=== PATIENT | female | born 1975 | race Caucasian/White ===

== ENCOUNTER 2017-09-14 14:35 | Outpatient (CLI) | payer MEDICARE | END 2017-09-14 14:36 | disposition home or self-care (01) | LOC: BICRAD 14:35 | PROVIDERS: ATTEND Specialist | DX: M25.531 Pain in right wrist (principal); M85.80 Other specified disorders of bone density and structure, unspecified site; Z98.1 Arthrodesis status ==

== ENCOUNTER 2018-07-21 01:25 | Outpatient (CLI) | payer MEDICARE ==
[2018-07-21 12:31] LABS: #Eosinphils 0.4 thou/uL (0.0-0.7); #Lymphocytes 1.2 thou/uL (1.20-3.40); #Monocytes 0.2 thou/uL (0.11-0.59); #Neutrophils 1.9 thou/uL (1.40-6.50); %Basophils 0.7 % (0.0-1.0); %Eosinophils 11.5 % (0.0-10.0); %Lymphocytes 32.1 % (21.0-51.0); %Monocytes 4.1 % (0.0-10.0); %Neutrophils 51.6 % (42.0-75.0); Hemoglobin 11.1 g/dL (12.0-16.0); Mean Corpuscular HGB CONC 33.4 g/dL (32.0-36.0); Mean Corpuscular Hemoglobin 26.7 pg (27.0-31.0); Mean Corpuscular Volume 79.8 fL (78.0-98.0); Mean Platelet Volume 8.2 fL (7.4-10.4); Platelet Count 162 thou/uL (130-400); RBC Distribution Width 14.4 % (11.5-14.5); Red Blood Cell (RBC) Count 4.17 mill/uL (4.20-5.40); White Blood Cell (WBC) Count 3.7 thou/uL (4.8-10.8)
[2018-07-21 12:41] LABS: Bilirubin Small (Negative); Blood, Urine Negative (Negative); Clarity CLOUDY (Clear); Glucose, Urine (Dipstick) Negative (Negative); Leukocyte Trace (Negative); Nitrite Negative (Negative); Protein, Urine (Dipstick) Negative (Neg-Trace); Specific Gravity, Urine 1.025 (1.002-1.036)
[2018-07-21 12:44] LABS: Bacteria/HPF Rare-Few HPF (None Seen); Hyaline Casts/LPF 0-3 HYALINE CAST LPF (0-3 Hyaline); WBC/HPF 0-3 HPF (0-3)
[2018-07-21 12:49] LABS: Anion Gap 13 mmol/L (10-20); BUN (Urea Nitrogen) 16 mg/dL (7.0-18.7); Calc. Creatinine Clearance 0 mL/min (70-130); Calcium 8.6 mg/dL (7.8-10.44); Carbon Dioxide 24 mmol/L (22-29); Chloride 105 mmol/L (98-107); Estimated GFR-MDRD 58; Glucose 79 mg/dL (70-105); Potassium 3.9 mmol/L (3.5-5.1); Sodium 138 mmol/L (136-145)
[2018-07-21 12:57] LABS: Crystals/HPF 1+ CA OXALATE HPF (Negative)
--- NOTE | 2018-07-21 14:45 | RAD ---
CHEST 2 VIEWS: COMPARISON: 09/13/2003. HISTORY: Preoperative exam. FINDINGS: Normal cardiac silhouette. The pulmonary vessels and hilum are normal. Costophrenic angles are kike r. No consolidation or mass. No pneumothorax or osseous abnormalities. IMPRESSION: No acute cardiopulmonary process. POS: BASIM
== END 2018-07-21 01:26 | disposition home or self-care (01) ==
LOC: LABBT 01:25
PROVIDERS: ATTEND Orthopaedic Surgery Hand Surgery
DX: Z01.818 Encounter for other preprocedural examination (principal); S63.112A Subluxation of metacarpophalangeal joint of left thumb, initial encounter
CPT/HCPCS: 71046; 80048; 81001; 85025; 85652; 93005; 93010; L3806-LT

== ENCOUNTER 2018-08-01 11:16 | Inpatient (IN) | payer MEDICARE ==
[2018-07-21 11:40] VITALS: BMI 24.4
[2018-08-01] MEDS ORDERED: Dexamethasone 20 MG/5 ML VIAL ONE (11:37)
[2018-08-01] MEDS ORDERED: PROPOFOL 200 MG/20 ML VIAL ONE (11:37)
[2018-08-01] MEDS ORDERED: Metoprolol Tartrate 5 MG/5 ML VIAL ONE (11:37)
[2018-08-01] MEDS ORDERED: Ketorolac Tromethamine 30 MG/ML VIAL ONE (11:37)
[2018-08-01] MEDS ORDERED: Ondansetron PF 4 MG/2 ML Vial ONE (11:37)
[2018-08-01] MEDS ORDERED: Lidocaine 1% PF 5 ML VIAL ONE (11:37)
[2018-08-01] MEDS ORDERED: Midazolam HCl 2 mg/2 ml Vial ONE (12:16)
[2018-08-01] MEDS ORDERED: Fentanyl 100 MCG/2 ML VIAL ONE ×4 (12:16→20:12)
[2018-08-01] MEDS ORDERED: Bacitracin Zinc Ointment 30 gm TUBE ONE (13:10)
[2018-08-01] MEDS ORDERED: Sodium Chloride 0.9% 10 ML ONE (13:10)
[2018-08-01] MEDS ORDERED: Bupivacaine PF 0.5% 30 ML VIAL ONE (13:14)
[2018-08-01] MEDS ORDERED: Betamet Acet/Betamet Na Ph 30 MG/5 ML VIAL ONE (13:14)
[2018-08-01] MEDS ORDERED: Thrombin 5000 UNITS/5 ML VIAL ONE ×2 (15:04→15:52)
[2018-08-01] MEDS ORDERED: PACU-Morphine 4MG/ML VIAL SLOW IVP PRN (20:07)
[2018-08-01] MEDS ORDERED: HYDROmorphone 2 MG/ML VIAL SLOW IVP PRN (20:07)
[2018-08-01] MEDS ORDERED: Promethazine HCl 25 MG/ML VIAL SLOW IVP PRN (20:07)
[2018-08-01] MEDS ORDERED: Promethazine HCl 25 MG/ML VIAL IM PRN (20:07)
[2018-08-01] MEDS ORDERED: Ondansetron HCl/PF 4 MG/2 ML Vial IVP PRN (20:07)
[2018-08-01] MEDS ORDERED: traMADol HCl 50 MG TAB PO PRN (20:14)
[2018-08-01] MEDS ORDERED: Ondansetron PF 4 MG/2 ML Vial IV PRN (20:14)
[2018-08-01] MEDS ORDERED: Fentanyl 100 MCG/2 ML VIAL SLOW IVP PRN (20:14)
[2018-08-01] MEDS ORDERED: Morphine 4 MG/ML VIAL SLOW IVP PRN (20:14)
[2018-08-01] MEDS ORDERED: Communication Order-Pharmacy FS SCH (20:15)
[2018-08-01] MEDS ORDERED: Meperidine HCl/PF 25 MG/ML VIAL IM PRN (20:16)
--- NOTE | 2018-08-01 20:35 | RAD ---
LEFT HAND THREE FLUOROSCOPIC VIEWS: History: Internal fixation procedure. Left hand arthroplasty. FINDINGS: Pins and wires securing the first MCP joint. POS: BASIM
[2018-08-01] MEDS: Aspirin 81 mg Enteric Coated Tablet PO SCH (21:56)
[2018-08-01] MEDS ORDERED: TETANUS AND DIPHTHERIA TOX/PF 0.5 ML DISP.SYRIN IM SCH (22:00)
[2018-08-01] MEDS: HYDROcodone/Acetaminophen 5/325 mg Tablet PO PRN (22:09)
[2018-08-01] MEDS: Ketorolac Tromethamine 30 MG/ML VIAL IVP SCH (23:38)
[2018-08-02] MEDS ORDERED: Vancomycin HCl 1 GM in Premix Bag 1 BAG IVPB SCH (02:00)
[2018-08-02] MEDS: HYDROcodone/Acetaminophen 5/325 mg Tablet PO PRN ×3 (02:38→22:41)
[2018-08-02] MEDS: Ketorolac Tromethamine 30 MG/ML VIAL IVP SCH ×3 (05:52→16:30)
[2018-08-02] MEDS: Aspirin 81 mg Enteric Coated Tablet PO SCH ×2 (08:08→21:12)
[2018-08-02] MEDS ORDERED: Bupivacaine HCl 0.5%/Epinephrine 1:200,000/PF 30 ml Vial ONE (11:25)
[2018-08-02] MEDS: Vancomycin HCl 1 GM in Premix Bag 1 BAG IVPB SCH (16:30)
[2018-08-02] MEDS ORDERED: Zolpidem Tartrate 5 MG TAB PO SCH (23:15)
[2018-08-03] MEDS: Ketorolac Tromethamine 30 MG/ML VIAL IVP SCH (00:03)
[2018-08-03] MEDS: Vancomycin HCl 1 GM in Premix Bag 1 BAG IVPB SCH (05:36)
[2018-08-03] MEDS: Aspirin 81 mg Enteric Coated Tablet PO SCH (09:47)
--- NOTE | 2018-08-03 10:25 | OP ---
DATE OF PROCEDURE: 08/01/2018 PREOPERATIVE DIAGNOSES: 1. Left thumb metacarpophalangeal joint erosive arthritis. 2. Left index finger erosive arthritis with dislocation, ulnar drift, intrinsic tightness, and extensor tendon subluxation, metacarpophalangeal joint level. 3. Left middle finger erosive arthritis, metacarpophalangeal joint level with intrinsic tightness; dislocation, volar and ulnar; and ulnar drift with extensor tendon subluxation. 4. Left ring finger erosive arthritis, metacarpophalangeal joint with;. a. Dislocation of the metacarpophalangeal joint. b. Ulnar drift, intrinsic tightness, and extensor tendon, ulnar subluxation. 5. Left small finger erosive arthritis, metacarpophalangeal joint with dislocation of the metacarpophalangeal joint, ulnar and volar; ulnar drift; intrinsic tightness; and extensor tendon ulnar subluxation. PROCEDURES PERFORMED: 1. Left thumb metacarpophalangeal arthrodesis. 2. Left index finger;. a. Palmar capsule and metacarpophalangeal joint. b. Intrinsic release, ulnar aspect. c. Extensor tendon centralization/retinaculum reconstruction. d. Metacarpophalangeal joint silicone arthroplasty. e. C-arm supervision. f. Synovectomy. 3. Left middle finger. The exact same procedures were performed here in the exact order as with the index finger. 4. Left ring finger. The exact same procedures were performed as for the middle finger and index finger in the exact order. 5. Left small finger. The exact same procedures were performed as were performed in the index, middle finger, and ring finger except for small finger had additional small finger extensor tendon tenotomy. Also, there was application of long-arm splint, and there was C-arm supervision at each finger. SPECIMENS REMOVED: None that were kept or sent to the lab. ESTIMATED BLOOD LOSS: 50 mL. TOURNIQUET TIME: 130 minutes initially up with 35 minutes of tourniquet down and additional 120 minutes tourniquet up. FINDINGS: Very eroded/erosive-type osteoarthritis. IMPLANTS: Implant arthroplasty with [employer] as follows: 1. Index finger MP joint size ____. 2. Middle finger MP joint size 2. 3. Ring finger MP joint size 1. 4. Small finger size ____. INDICATIONS FOR PROCEDURE: The patient with very bad rheumatoid arthritis, who reports that she has not been able to tolerate the new tissue/immuno-humeral therapy medications of any type, and now reports progressive onset of ulnar drift, pain, subluxation, popping, and poor ability to make a fist or open the digits for activities of daily living. DESCRIPTION OF PROCEDURE: After successful general LMA technique augmented by a supraclavicular block, the patient had the limb prepped and draped. Time-out was done for each finger individually. First, we pursued the thumb, where we exsanguinated the limb, inflated the tourniquet to 250 mmHg pressure, made a zig-zag incision centered over the MP joint, carried through skin and subcutaneous tissue. Because of the obvious ulnar subluxation, we made an incision in the ulnar retinaculum and brought the entire extensor mechanism radially, performed a complete capsulotomy. We exposed the joint. We then used a kanu to create a cup and cone effect with the cone or concave area being on the space and the convex area being on the proximal phalanx. It must be noted that there was excellent coadaptation. At this point, we used an 18-gauge needle converted to a drill guide to drill holes parallel to the joint and 2 mm from the joint edge even after resecting. We passed the cerclage-type wire . We completed debridement of the joint, and once this was done, we then placed a cerclage 24-gauge wire through the previous drill hole site, held the joint in 20 degrees of palmar flexion and in neutral alignment from the sagittal plane otherwise, and then drilled 2 K wires with excellent purchase and did not expand the joint space. At this point, we then used the machine to tie the 24-gauge wire, cut it below the skin after the radiographs confirmed excellent position, and placed small amount of cancellous bone graft in the dorsal aspect, which is now not as grafted as the palmar aspect because of the positioning. We then placed the moist sponge in this area after closing the retinaculum with a running 4-0 Prolene and tied. We turned attention to the index finger, where the patient had such tremendous erosive change with loss of bone, marked synovitis that we had to release and nearly perform a tenotomy over the extensor indicis proprius because it was all the way in the gutter and ulnarly subluxated. We released the ulnar side of the retinaculum for approximately 1 cm, then skipped a centimeter, and then released the intrinsics on the ulnar side. We were able to bring the tendon back up on top. We then completed the arthrotomy in a T-shape, debrided all the joint involvement areas, and then visualized the metacarpal head and the base of the phalanx. Here, we gently removed the collaterals releasing the ulna and saving the slightly attenuated/stretched radial collateral ligament. We then made our saw cut parallel to the joint line in the field at the metacarpal head, removed approximately 3 mm of bone, made this as a box cut. I repeated the same on the proximal phalanx base, removed osteophytes to create a box cut effect or close as possible. We then began with the broach, under x-ray visualization making sure we did . Once we saw that, we then began reaming with the tapper hand from the [employer] set. The first one chosen was a 2 proximal and distal. This gave excellent fit. Then, we placed a 3 proximal and distal. Once we had done this, we then noticed that we had reached appropriate width by eyeball technique, and then we placed the trial prosthesis inside. Once we had done this, we noticed it had excellent coadaptation, no subluxation, and into 95 degrees, there was no loss of position. Then, we selected the same size 2, placed it in, and then we had to radiograph it and clinically showed . We then began by removing this trial, getting the permanent size 2, placing the radial collateral ligament back to the side of the metacarpal here using the drill hole technique with a heavy 4-0 Prolene. Once we had done this, we placed in the final prosthesis, and it was stable in every way to include the radial collateral ligament, which was not the case preoperatively. The patient then had the mirror image procedure performed to include the synovectomy, implant arthroplasty, ulnar collateral ligament repair, synovectomy with intrinsic release and tenotomy. The implants used were as follows; [employer], the index finger size , middle finger size 2, ring finger size 1, and small finger size . The tourniquet was deflated. Then, all wounds were closed with simple interrupted mattress suture, and the patient left the operating room in a splint in appropriate position for the joints of -20 extension, and no evidence of anesthetic or operative complication. After this, we then placed a bulky dressing, bacitracin, Adaptic, 4x4, Kerlix, and multiple passes between the digits. With this in mind, the long-arm splint was placed in the palmar position. Separate splints for the thumb, as for the remaining digits. The patient will now follow up with us in 1 week. Diet is regular. Job ID: [id number]
[2018-08-03 15:34] VITALS: BP 120/82; TEMP 98.5
== END 2018-08-03 18:27 | disposition home or self-care (01) | DRG 506 ==
LOC: SDC 11:16 → SURG B 20:23 → OBSVTOIN 08-02 15:44
PROVIDERS: ADMIT Orthopaedic Surgery Hand Surgery; ATTEND Orthopaedic Surgery Hand Surgery
PROC: 0RGV0JZ Fusion of Left Metacarpophalangeal Joint with Synthetic Substitute, Open Approach (ICD-10-PCS; principal; 2018-08-02)
PROC: 0RQV0ZZ Repair Left Metacarpophalangeal Joint, Open Approach (ICD-10-PCS; 2018-08-02)
PROC: 0RBV0ZZ Excision of Left Metacarpophalangeal Joint, Open Approach (ICD-10-PCS; 2018-08-02)
PROC: 0L880ZZ Division of Left Hand Tendon, Open Approach (ICD-10-PCS; 2018-08-02)
DX: M15.4 Erosive (osteo)arthritis (principal); M19.042 Primary osteoarthritis, left hand; S63.265A Dislocation of metacarpophalangeal joint of left ring finger, initial encounter; S63.267A Dislocation of metacarpophalangeal joint of left little finger, initial encounter; S63.261A Dislocation of metacarpophalangeal joint of left index finger, initial encounter; T14.8XXA Other injury of unspecified body region, initial encounter; G56.31 Lesion of radial nerve, right upper limb
CPT/HCPCS: 76000; C1776; J0670; J0702; J1100; J1885; J2001; J2250; J2270; J2405; J2704; J3010; J3370; J3490; S0020

== ENCOUNTER 2018-10-04 06:02 | Day surgery (SDC) | payer MEDICARE ==
[2018-10-03 11:33] VITALS: BMI 23.6
[2018-10-04] MEDS ORDERED: Sodium Chloride 0.9% 10 ML ONE (06:41)
[2018-10-04] MEDS ORDERED: Bacitracin Zinc Ointment 30 gm TUBE ONE (06:41)
[2018-10-04] MEDS ORDERED: Bupivacaine PF 0.5% 30 ML VIAL ONE (06:41)
[2018-10-04] MEDS ORDERED: Fentanyl 100 MCG/2 ML VIAL ONE (07:08)
[2018-10-04] MEDS ORDERED: Midazolam HCl 2 mg/2 ml Vial ONE (07:08)
[2018-10-04 07:10] LABS: #Basophils 0.1 thou/uL (0.0-0.2); #Eosinphils 0.2 thou/uL (0.0-0.7); #Lymphocytes 1.5 thou/uL (1.20-3.40); #Monocytes 0.3 thou/uL (0.11-0.59); %Basophils 1.2 % (0.0-1.0); %Eosinophils 3.4 % (0.0-10.0); %Lymphocytes 29.7 % (21.0-51.0); %Monocytes 5.4 % (0.0-10.0); %Neutrophils 60.4 % (42.0-75.0); Mean Corpuscular HGB CONC 32.3 g/dL (32.0-36.0); Mean Corpuscular Hemoglobin 26.5 pg (27.0-31.0); Platelet Count 127 thou/uL (130-400); RBC Distribution Width 14.5 % (11.5-14.5); Red Blood Cell (RBC) Count 4.14 mill/uL (4.20-5.40)
[2018-10-04 07:16] LABS: Bilirubin Negative (Negative); Blood, Urine Negative (Negative); Clarity CLOUDY (Clear); Glucose, Urine (Dipstick) Negative (Negative); Leukocyte Negative (Negative); Nitrite Negative (Negative); Protein, Urine (Dipstick) Negative (Neg-Trace); Specific Gravity, Urine 1.021 (1.002-1.036); pH, Urine 6.5 (5.0-9.0)
[2018-10-04 07:19] LABS: Pathc Cast-AUWi Flag 0.13 (0-2.49)
[2018-10-04 07:43] LABS: Bacteria/HPF None Seen HPF (None Seen); Hyaline Casts/LPF 0-3 HYALINE CAST LPF (0-3 Hyaline); RBC/HPF 0-3 HPF (0-3); Squamous Epithelial 0-3 HPF (0-3); WBC/HPF 0-3 HPF (0-3)
--- NOTE | 2018-10-04 10:29 | RAD ---
Exam: Left hand 3 views: HISTORY: Status post arthroscopy. FINDINGS: Extensive postoperative changes are noted at the metacarpal phalangeal joints with a wire suture stab ilizing the fifth metatarsal phalangeal joint region which appears to be dislocated/severely subluxed as seen on these portable fluoroscopic spot images. IMPRESSION: Limited portable fluoroscopic spot images. Subluxation-dislocation of the fifth metacarpal phalangeal joint with some one wire suture.
[2018-10-04] MEDS ORDERED: Ketorolac Tromethamine 30 MG/ML VIAL ONE (10:56)
[2018-10-04] MEDS ORDERED: PROPOFOL 200 MG/20 ML VIAL ONE (14:56)
[2018-10-04] MEDS ORDERED: Dexamethasone 20 MG/5 ML VIAL ONE (14:56)
[2018-10-04] MEDS ORDERED: PHENYLEPHRINE-NS 100 MCG/ML 10 ML SYRINGE ONE (14:56)
[2018-10-04] MEDS ORDERED: Ondansetron PF 4 MG/2 ML Vial ONE (14:56)
[2018-10-04] MEDS ORDERED: Ropivacaine 0.5% HCl/PF (150 MG/30 ML VIAL) ONE (16:01)
[2018-10-04] MEDS ORDERED: Ropivacaine 0.2% HCl/PF (40 MG/20 ML VIAL) ONE (16:01)
--- NOTE | 2018-10-05 10:50 | OP ---
DATE OF PROCEDURE: 10/04/2018 PREOPERATIVE DIAGNOSES: 1. Left ring finger and small finger MCP joint dislocation with failed total joint arthroplasty using silastic implants, Brown type. 2. Subluxation, extensor mechanism ulnarly. 3. Dislocated metacarpophalangeal joints. POSTOPERATIVE DIAGNOSES: 1. Left ring finger and small finger MCP joint dislocation with failed total joint arthroplasty using silastic implants, Brown type. 2. Subluxation, extensor mechanism ulnarly. 3. Dislocated metacarpophalangeal joints. PROCEDURE: Open reduction internal fixation of proximal phalanx fracture as part of the procedure as well as C-arm supervision and splint application, short-arm static. ANESTHESIA: General LMA technique by Anesthesia. TOURNIQUET TIME: Ninety-six minutes. BLOOD LOSS: Approximately 50 mL. INJECTABLE: Yes, 20 mL 0.5% Marcaine to the proximal metacarpophalangeal joint block. INDICATIONS: The patient is now approximately six weeks after initial procedure when we noticed some increased difficulty with flexion of the small and ring fingers and early increased ulnar angulation compared to the other two digits. Radiographs show completely dislocated and subluxed along with dislodge without fracture of metacarpophalangeal joint prostheses of the ring and small fingers, revision was indicated. DESCRIPTION OF PROCEDURE: After successful general LMA technique, the limb was prepped and draped, we did the transverse injection of 20 mL of 0.5% Marcaine and used the old incision extended it proximally and distally by 2 cm at the level of the small finger metacarpophalangeal joint. We then carried it to a point from the ulnar side of the small finger metacarpophalangeal joint to the ulnar side of the middle finger metacarpophalangeal joint. We first approached the ring finger and then released the tight ulnar intrinsic as well as the ulnar retinaculum, pulled back the healed radial retinaculum repair and exposed the joint. We then removed the implant. There was no fracture, we sized it again and then placed a slightly larger size which fit well, went from a one to a two silastic implant. We removed approximately 2 mm of bone, one over each of the joint, we freed the capsule and the released intrinsics as well. We placed the trial, we pulled the cyst mechanism over and it was stable from +10 to 95 degrees passive flexion. Once we put the prosthesis in, the permanent, it fit well. Radiographs confirmed this and then we balanced the soft tissue by using 3-0 Prolene to repair the ulnar retinaculum and the digit was almost straight. We then turned our attention to the small finger. We released the ulnar intrinsics and retinaculum, elevated the central mechanism of the extensor digitorum communis and extensor digiti minimi radially. We removed the dislocated prosthesis which was not fractured. We then began to size and realized we would need to put a large size in for more stability, but during the reaming, an inadvertent fracture of a 1 cm long by 4 mm wide at its base triangular piece from the radial aspect of the base of the proximal phalanx. We carefully then used two 24-gauge cerclage wires, placing them onto the flexor mechanism on the bone underneath the neurovascular mechanism and machine, tightening this in nearly anatomic position using the K-wire school bus driver/mechanic in order to not lose diameter in the shaft. We then continued to ream using curette at this time from the neurosurgical curette set. The patient then had the C-arm brought in the field, we confirmed the fracture line was excellent, then we removed approximately 1 mm from the bony rim of the small finger. At this time, we found the collateral ligament, placed it inside the shaft of the ulnar collateral and centralized the reduction. After we did the trial, we performed the same with a permanent prosthesis, at this time, sized up to a size one. There was no instability and so we closed, tied the ulnar collateral ligament with 4-0 Prolene and the ulnar retinaculum without overtightening it, the extensor mechanism being central with interrupted 4-0 Prolene and RB-1 needle. The patient had stable all digits, flexion to 100 degrees and extension to +10 at the MP joints. The tourniquet was deflated, hemostasis obtained, the wound was closed in a running simple 4-0 nylon interrupted mattress pattern. Bulky dressing was applied with the digits in approximately 30 degrees of MP joint flexion, full extension at the PIP and DIP and supported palmar and dorsal. The patient left the operating room with beautiful C-arm pictures and no evidence of anesthetic or operative complication, except for the fracture. Job ID: [id number]
== END 2018-10-04 12:15 | disposition home or self-care (01) ==
LOC: SDC 06:02
PROVIDERS: ATTEND Orthopaedic Surgery Hand Surgery
PROC: 0PSV04Z Reposition Left Finger Phalanx with Internal Fixation Device, Open Approach (ICD-10-PCS; principal; 2018-10-04)
PROC: 0RSV04Z Reposition Left Metacarpophalangeal Joint with Internal Fixation Device, Open Approach (ICD-10-PCS; 2018-10-04)
DX: T84.028A Dislocation of other internal joint prosthesis, initial encounter (principal); S63.265A Dislocation of metacarpophalangeal joint of left ring finger, initial encounter; S63.267A Dislocation of metacarpophalangeal joint of left little finger, initial encounter
CPT/HCPCS: 26715 ×2; 73130; 76000; 80053; 81001; 85025 ×2; 93005; 96361; 96374; 96375; 96376; 99283; C1776; 36415; J0690; J1100; J1885; J2250; J2405; J2704; J2795; J2930; J3010; J3490; S0020; S0028

== ENCOUNTER 2018-10-04 16:14 | Emergency (ER) | payer MEDICARE ==
[2018-10-04 17:18] LABS: #Monocytes 0.2 thou/uL (0.11-0.59); #Neutrophils 5.6 thou/uL (1.40-6.50); %Basophils 0.1 % (0.0-1.0); %Monocytes 2.8 % (0.0-10.0); Hemoglobin 15.6 g/dL (12.0-16.0); Mean Corpuscular HGB CONC 32.7 g/dL (32.0-36.0); Mean Corpuscular Hemoglobin 27.6 pg (27.0-31.0); Mean Corpuscular Volume 84.5 fL (78.0-98.0); Mean Platelet Volume 10.1 fL (7.4-10.4); Platelet Count 181 thou/uL (130-400); RBC Distribution Width 15.4 % (11.5-14.5); Red Blood Cell (RBC) Count 5.67 mill/uL (4.20-5.40); White Blood Cell (WBC) Count 6.9 thou/uL (4.8-10.8)
[2018-10-04] MEDS ORDERED: methylPREDNISolone Sod Succ/PF 125 MG/2 ML VIAL ONE (17:26)
[2018-10-04] MEDS ORDERED: Famotidine/PF 20 mg/2ml Vial ONE (17:27)
[2018-10-04 17:36] LABS: ALT (SGPT) 16 U/L (8-55); AST (SGOT) 40 U/L (5-34); Albumin 3.6 g/dL (3.5-5.0); Alkaline Phosphatase 96 U/L (40-150); Anion Gap 16 mmol/L (10-20); BUN (Urea Nitrogen) 18 mg/dL (7.0-18.7); Bilirubin, Total 0.6 mg/dL (0.2-1.2); Calc. Creatinine Clearance 0 mL/min (70-130); Calcium 8.1 mg/dL (7.8-10.44); Carbon Dioxide 18 mmol/L (22-29); Chloride 108 mmol/L (98-107); Estimated GFR-MDRD 50; Glucose 148 mg/dL (70-105); Potassium 4.7 mmol/L (3.5-5.1); Protein, Total 6.6 g/dL (6.0-8.3); Sodium 137 mmol/L (136-145)
[2018-10-04] MEDS ORDERED: Ondansetron PF 4 MG/2 ML Vial ONE ×2 (17:39→19:55)
--- NOTE | 2018-10-08 23:33 | EKG ---
Test Reason : Blood Pressure : / mmHG Vent. Rate : 082 BPM Atrial Rate : 082 BPM P-R Int : 100 ms QRS Dur : 086 ms QT Int : 380 ms P-R-T Axes : 017 053 015 degrees QTc Int : 443 ms Sinus rhythm with short HI Nonspecific ST and T wave abnormality Abnormal ECG Confirmed by REGAN SOLER ([id number]), continuity editor JORGE SCHUSTER ([id number]) on 10/08/2018 11:33:14 PM Referred By: Confirmed By:REGAN SOLER
== END 2018-10-04 20:53 | disposition home or self-care (01) ==
LOC: ERS 16:14
DX: T78.40XA Allergy, unspecified, initial encounter (principal); E86.0 Dehydration; M06.9 Rheumatoid arthritis, unspecified; F32.9 Major depressive disorder, single episode, unspecified
CPT/HCPCS: 36415; 80053; 93005; J2405; J2930; S0028

== ENCOUNTER 2021-07-15 13:30 | Outpatient (CLI) | payer MEDICARE | END 2021-07-15 13:31 | disposition home or self-care (01) | LOC: BICRAD 13:30 | PROVIDERS: ATTEND Specialist | DX: M54.50 Low back pain, unspecified (principal); M47.816 Spondylosis without myelopathy or radiculopathy, lumbar region | CPT/HCPCS: 72100 ==

== ENCOUNTER 2021-11-23 15:19 | Emergency (ER) | payer MEDICARE ==
[~2021-11-23 15:19] MED LIST: ISOVUE-370 76%-LOCM 1 ML ONE
[2021-11-23 16:41] LABS: #Eosinphils 0.2 thou/uL (0.0-0.7); #Monocytes 0.2 thou/uL (0.11-0.59); #Neutrophils 4.4 thou/uL (1.40-6.50); %Basophils 0.1 % (0.0-1.0); %Eosinophils 2.8 % (0.0-10.0); %Lymphocytes 16.9 % (21.0-51.0); %Monocytes 4.1 % (0.0-10.0); Hemoglobin 11.9 g/dL (12.0-16.0); Mean Corpuscular HGB CONC 33.1 g/dL (32.0-36.0); Mean Corpuscular Hemoglobin 28.7 pg (27.0-31.0); Mean Corpuscular Volume 86.8 fL (78.0-98.0); Mean Platelet Volume 9.6 fL (7.4-10.4); Platelet Count 174 thou/uL (130-400); RBC Distribution Width 12.7 % (11.5-14.5); Red Blood Cell (RBC) Count 4.13 mill/uL (4.20-5.40); White Blood Cell (WBC) Count 5.8 thou/uL (4.8-10.8)
[2021-11-23 16:48] LABS: Bilirubin Negative (Negative); Blood, Urine Negative (Negative); Clarity Clear (Clear); Glucose, Urine (Dipstick) Normal (Negative); Ketone, Urine Negative (Negative); Leukocyte Negative Leu/uL (Negative); Nitrite Negative (Negative); Protein, Urine (Dipstick) 10 mg/dL (Neg-Trace); Urobilinogen Greater than 12 mg/dL (Less than 2)
[2021-11-23 16:48] LABS: BHCG - Serum Negative (NEGATIVE); Pregs Control Background? CLEAR/WHITE (CLR/WHITE); Pregs Control Bar Appear? YES (CONTROL BAR)
[2021-11-23 17:02] LABS: ALT (SGPT) 7 U/L (8-55); AST (SGOT) 18 U/L (5-34); Albumin 3.6 g/dL (3.5-5.0); Alkaline Phosphatase 101 U/L (40-110); Anion Gap 10 mmol/L (10-20); BUN (Urea Nitrogen) 7 mg/dL (7.0-18.7); Bilirubin, Total 1.1 mg/dL (0.2-1.2); Calc. Creatinine Clearance 0 mL/min (70-130); Calcium 8.9 mg/dL (7.8-10.44); Carbon Dioxide 26 mmol/L (22-29); Chloride 102 mmol/L (98-107); Globulin 3.7 g/dL (2.4-3.5); Glucose 98 mg/dL (70-105); Protein, Total 7.3 g/dL (6.0-8.3); Sodium 135 mmol/L (136-145)
[2021-11-23] MEDS ORDERED: Pot Chloride/Pot Bicarb/Cit Ac 25 mEq Effervescent Tablet ONE (18:13)
== END 2021-11-23 18:40 | disposition home or self-care (01) ==
LOC: ERS 15:19
DX: J40 Bronchitis, not specified as acute or chronic (principal); Z20.822 Contact with and (suspected) exposure to COVID-19; M06.9 Rheumatoid arthritis, unspecified
CPT/HCPCS: 71045; 71275; 80053; 81003; 83880; 84484; 84703; 85025; 85379; 93005; 99284; U0003; U0005; 36415; Q9966

== ENCOUNTER 2022-02-15 11:11 | Emergency (ER) | payer MEDICARE ==
[2022-02-15] MEDS ORDERED: Bacitracin 1 PK ONE (11:28)
== END 2022-02-15 11:41 | disposition home or self-care (01) ==
LOC: ERS 11:11
DX: L03.114 Cellulitis of left upper limb (principal)
CPT/HCPCS: 10060

== ENCOUNTER 2022-12-15 10:11 | Emergency (ER) | payer MEDICARE | END 2022-12-15 13:10 | disposition home or self-care (01) | LOC: ERS 10:11 | DX: H66.92 Otitis media, unspecified, left ear (principal); J00 Acute nasopharyngitis [common cold]; J32.9 Chronic sinusitis, unspecified; J32.0 Chronic maxillary sinusitis; E78.5 Hyperlipidemia, unspecified | CPT/HCPCS: 99283 ==